=== PATIENT | male | born 1945 | race Caucasian/White ===

== ENCOUNTER 2016-10-18 19:37 | Emergency (ER) ==
[2016-10-18 19:40] VITALS: BP 147/84; TEMP 97.8; BMI 29.8
[2016-10-18] MEDS ORDERED: NITROSTAT SL STA (20:02)
[2016-10-18] MEDS ORDERED: ASPIRIN CHEWABLE PO STA (20:02)
[2016-10-18] MEDS ORDERED: SODIUM CHLORIDE 1,000 ML IV STA (20:04)
--- NOTE | 2016-10-18 20:04 | ED.PDOC ---
General ED Provider: Dr. TOMMIE PARISI Chief Complaint: Chest Pain Stated Complaint: Patient is a 71 year old male who has a history of DM on medicaions, has never smoked comes to the ER with a 2 week history of intermittent chest Located on the mid chest goes across Associated with dyspnea and mild shortness of breath. Pain is excertional sometimes last up to an hour. Time Seen by Physician: 19:55 Mode of Arrival: Walk-In Information Source: Patient Exam Limitations: No limitations Primary Care Provider: NATANAEL ARENAS Nursing and Triage Documentation Reviewed and Agree: Yes Cardiovascular Complaint Exam - Chest Pain Complaint/Exam Onset: Gradual Duration: 2 weeks Symptoms Are: Still present Timing: Intermittent Length of Chest Pain Episodes: few min to 1 hour Initial Severity: Moderate Current Severity: Moderate Location: Reports: Midsternal Pain Radiates: Reports: None Character: Reports: Dull, Heaviness Aggravating: Reports: Exertion Alleviating: Reports: Rest Associated Signs and Symptoms: Reports: Short of air. Denies: Diaphoresis, Nausea, Vomiting, Fever, Palpitations, Cough, Hemoptysis, Back pain, Abdominal pain, Dizziness, Calf pain, Calf swelling Related Surgical History: Reports: None History of Healthcare-Acquired Pneumonia: Reports: No AMI/ACS Risk Factors: Reports: Diabetes, Family history, Hypertension. Denies: Myocardial Infarction, Sedentary, Obesity, Nitroglycerine use, Smoking, Cocaine use TAD Risk Factors: Reports: None Pulmonary Embolism Risk Factors: Reports: None Prior Care for this Complaint: No Recent Stress Test: No Recent Echo/LV Function: No JVD Present: No Subcutaneous Emphysema Present: No Diminshed Breath Sounds: No Reproducible Chest Wall Pain: No Bilateral Pulses Present: No Unequal Pulses Noted: No Chest Picture: 1 - area of dull pain If Risk Factors for AMI/ACS Consider: EKG, Cardiac Enzymes, Serial Studies, Oxygen, Aspirin Documents Reviewed: Labs, Imaging, EKG Differential Diagnoses: Acute NV, ACS, Unstable Angina, CHF, GI Diseasae Quality Indicators For Acute NV or Cardiac Chest Pain: EKG in 10min., ASA if indicated Patient Advised to Stop Smoking: No (does not smoke. ) Review of Systems - Review Of Systems Constitutional: Reports: No symptoms Eyes: Reports: No symptoms Ears, Nose, Mouth, Throat: Reports: No symptoms Respiratory: Reports: Short of air Cardiac: Reports: Chest pain GI: Reports: No symptoms : Reports: No symptoms Musculoskeletal: Reports: No symptoms Skin: Reports: No symptoms Neurological: Reports: Anxiety Endocrine: Reports: No symptoms Hematologic/Lymphatic: Reports: No symptoms All Other Systems: Reviewed and Negative Past Medical History - Past Medical History Previously Healthy: No Endocrine: Reports: DM 2 Cardiovascular: Reports: Hypertension Respiratory: Reports: None Hematological: Reports: None Gastrointestinal: Reports: None Genitourinary: Reports: None Neuro/Psych: Reports: None Musculoskeletal: Reports: None Cancer: Reports: None - Surgical History General Surgical History: Reports: Orthopedic (left femur pain) - Family History Family History: Reports: Heart, Cancer - Social History Smoking Status: Never smoker Hx Substance Use: No Alcohol Screening: None Physical Exam - Physical Exam Appearance: Ill-appearing Ill-appearing: Mild Pain Distress: Mild Eyes: JHOAN, EOMI, Conjunctiva clear Neck: Supple Respiratory: Airway patent, Breath sounds clear, Breath sounds equal, Respirations nonlabored Cardiovascular: RRR, Pulses normal, No rub, No murmur GI/: Soft, Nontender, No masses, Bowel sounds normal, No Organomegaly Musculoskeletal: Normal strength, ROM intact, No edema, No calf tenderness Skin: Warm Neurological: Sensation intact, Motor intact, Alert, Oriented Psychiatric: Anxious Interpretation - Radiology Interpretation Radiology Interpretation By: ED Physician Radiology Results: No acute changes 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 Re-Evaluation - Re-Evaluation Time of Re-Evaluation: 20:26 Status: Improved Pain Level: 2 down from 5 after Nitroglycerin. Appearance: NAD Lungs: Clear Skin: Warm and Dry Neuro: Alert and Oriented X3 CV: RRR - Re-Evaluation Time of Re-Evaluation: 21:35 Status: Improved Vital Signs Stable: Yes Pain Level: 3 from 1 Appearance: NAD Skin: Warm and Dry Neuro: Alert and Oriented X3 CV: RRR Physician Notification - Case Discussed Physician Notified: Dr. Bocanegra Time of Notification: 21:05 (accepted in transer. ) Critical Care Note - Critical Care Note Total Time (mins): 15 Course - Course Hematology/Chemistry: 10/18/16 20:08 10/18/16 20:08 Orders, Labs, Meds: Lab Review 10/18/16 20:08 WBC 7.80 RBC 4.49 L Hgb 13.1 L Hct 37.5 L MCV 83.5 MCH 29.2 MCHC 34.9 RDW Coeff of Latoya 12.4 Plt Count 277 Immature Gran % (Auto) 0.1 Neut % (Auto) 51.1 Lymph % (Auto) 39.2 [place] % (Auto) 6.3 Eos % (Auto) 2.7 Baso % (Auto) 0.6 Immature Gran # (Auto) 0.0 Neut # 4.0 Lymph # 3.1 [place] # 0.5 Eos # 0.2 Baso # 0.1 Sodium 139 Potassium 3.8 Chloride 106 Carbon Dioxide 25 Anion Gap 11.8 BUN 12 Creatinine 1.00 Estimated GFR (MDRD) 74.00 BUN/Creatinine Ratio 12.00 Glucose 111 Calcium 9.3 Total Bilirubin 0.51 AST 16 ALT 16 Alkaline Phosphatase 97 Total Creatine Kinase 99 Troponin I 0.0210 B-Natriuretic Peptide 16 Total Protein 7.0 Albumin 4.0 Globulin 3.0 Albumin/Globulin Ratio 1.33 Orders Category Date Time Status EKG-(ED ONLY) Stat CARDIO 10/18/16 19:57 Completed EKG-(ED ONLY) Stat CARDIO 10/18/16 21:21 Ordered ED APPLY O2 .ONCE EMERGENCY 10/18/16 19:57 Active 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 .ONCE EMERGENCY 10/18/16 19:57 Active ED IV/MEDIPORT/POWERPORT .ONCE EMERGENCY 10/18/16 19:57 Active B-TYPE NATRIURETIC PEPTIDE Stat LAB 10/18/16 20:08 Completed CBC W/ AUTO DIFF Stat LAB 10/18/16 20:08 Completed COMPREHENSIVE METABOLIC PANEL Stat LAB 10/18/16 20:08 Completed CREATINE KINASE Stat LAB 10/18/16 20:08 Completed TROPONIN I Stat LAB 10/18/16 20:08 Completed 0.9 % Sodium Chloride [Saline Flush] MEDS 10/18/16 19:57 Ordered 1 syr IVF PRN PRN Aspirin [Aspirin Chewable] MEDS 10/18/16 20:02 Discontinued 324 mg PO ONCE STA Enoxaparin Sodium [Lovenox] MEDS 10/18/16 21:05 Discontinued 100 mg SUBCUT ONCE STA Nitroglycerin [Nitro-Dur 0.4 mg/Hr] MEDS 10/18/16 21:30 Ordered 1 patch TD DAILY Nitroglycerin [Nitrostat] MEDS 10/18/16 20:02 Discontinued 0.4 mg SL ONCE STA Sodium Chloride 0.9% [Sodium Chloride] 1,000 ml MEDS 10/18/16 20:04 Active IV 100 mls/hr CHEST, 1V AP ONLY Stat RADS 10/18/16 19:57 Taken Medications Generic Name Dose Route Start Last Admin Trade Name Freq PRN Reason Stop Dose Admin Sodium Chloride 1,000 mls @ 100 mls/hr 10/18/16 20:04 10/18/16 20:19 Sodium Chloride IV 10/19/16 06:03 100 mls/hr .Q10H STA Administration Nitroglycerin 1 patch 10/18/16 21:30 10/18/16 21:30 Nitro-Dur 0.4 Mg/Hr TD 1 patch DAILY NOÉ Administration Sodium Chloride 1 syr 10/18/16 19:57 10/18/16 20:19 Saline Flush IVF 1 syr PRN PRN Administration To flush IV Discontinued Medications Generic Name Dose Route Start Last Admin Trade Name Freq PRN Reason Stop Dose Admin Aspirin 324 mg 10/18/16 20:02 10/18/16 20:14 Aspirin Chewable PO 10/18/16 20:03 324 mg ONCE STA Administration Enoxaparin Sodium 100 mg 10/18/16 21:05 10/18/16 21:30 Lovenox SUBCUT 10/18/16 21:06 100 mg ONCE STA Administration Nitroglycerin 0.4 mg 10/18/16 20:02 10/18/16 20:19 Nitrostat SL 10/18/16 20:03 0.4 mg ONCE STA Administration Vital Signs: Temp Pulse Resp BP Pulse Ox 10/18/16 19:37 97.8 F 80 18 147/84 H 97 ELEANOR Risk Score Age >/= 65: Yes >/= 3 CAD Risk Factors: Yes Known CAD (Stenosis >/= 50%): No ASA Use in Past 7 Days: No Severe Angina (>/= 2 episodes in 24 hours): Yes EKG ST Changes >/= 0.5mm: No Postive Cardiac Marker: No ELEANOR Total Score: 3 ELEANOR Risk Score: Risk Score Odds of by 30D 0 0.1 (0.1-0.2) 1 0.3 (0.2-0.3) 2 0.4 (0.3-0.5) 3 0.7 (0.6-0.9) 4 1.2 (1.0-1.5) 5 2.2 (1.9-2.6) 6 3.0 (2.5-3.6) 7 4.8 (3.8-6.1) Departure - Departure Time of Disposition: 21:35 Disposition: TSF SHORT-TRM HOSP Discharge Problem: Chest pain, Angina of effort Condition: Fair Pt referred to PMD for follow-up: No (transferred ) Allergies/Adverse Reactions: Allergies No Known Allergies Allergy (Verified 10/18/16 19:40) Home Medications: Ambulatory Orders Glimepiride [Amaryl] 4 mg PO BID 11/10/14 Metformin HCl [Glucophage] 1,000 mg PO BID 11/10/14 Pt. Stabilized Within Hospital's Capabilities/Transferred To: [facility] Room 460 Disposition Discussed With: Patient
[2016-10-18 20:12] LABS: BASOPHILS # (AUTO) 0.1 K/uL (0-0.2); BASOPHILS % (AUTO) 0.6 % (0.0-3.0); EOSINOPHILS # (AUTO) 0.2 K/ul (0.0-0.7); EOSINOPHILS % (AUTO) 2.7 % (0.0-7.0); HEMATOCRIT 37.5 % (42.0-52.0); HEMOGLOBIN 13.1 g/dl (14.0-18.0); IMMATURE GRANULOCYTE % (AUTO) 0.1 % (0.0-5.0); LYMPHOCYTES # (AUTO) 3.1 K/uL (0.60-3.4); LYMPHOCYTES % (AUTO) 39.2 (10.0-50.0); MEAN CORPUSCULAR HEMOGLOBIN 29.2 pg (27.0-31.0); MEAN CORPUSCULAR HGB CONC 34.9 (31.8-35.4); MEAN CORPUSCULAR VOLUME 83.5 fl (80.0-94.0); MONOCYTES # (AUTO) 0.5 K/uL (0.4-2.0); MONOCYTES % (AUTO) 6.3 (0-10); NEUTROPHILS % (AUTO) 51.1; PLATELET COUNT 277 10^3/uL (140-440); RED BLOOD COUNT 4.49 10^6/ul (4.70-6.10)
[2016-10-18 20:41] LABS: ALBUMIN/GLOBULIN RATIO 1.33; ANION GAP 11.8; BILIRUBIN,TOTAL 0.51 mg/dL (0.00-1.20); CALCIUM 9.3 mg/dL (8.2-10.2); POTASSIUM 3.8 mmol/L (3.5-5.1); TROPONIN I 0.021 ng/ml (0.0000-0.4000)
[2016-10-18] MEDS ORDERED: LOVENOX SUBCUT STA (21:05)
[2016-10-18] MEDS ORDERED: NITRO-DUR 0.4 MG/HR TD ONE (21:27)
[2016-10-18] MEDS ORDERED: NITRO-DUR 0.4 MG/HR TD SCH (21:30)
[2016-10-18] MEDS ORDERED: MORPHINE 2 MG/ML SYRINGE IVP STA (21:36)
[2016-10-18] MEDS ORDERED: ZOFRAN 4 MG/2 ML IVP STA (21:36)
--- NOTE | 2016-10-19 07:42 | DI ---
EXAM: Single view of the chest. History: Chest pain. Findings: Heart size is normal. Elevated left hemidiaphragm. No focal consolidation. No apprecia ble pleural fluid and no pneumothorax. No acute osseous abnormalities. Impression: No acute cardiopulmonary process.
== END 2016-10-18 21:50 | disposition short-term general hospital (02) ==
LOC: ED 19:37
DX: I20.8 Other forms of angina pectoris (principal); I10 Essential (primary) hypertension; E11.9 Type 2 diabetes mellitus without complications; Z79.899 Other long term (current) drug therapy
CPT/HCPCS: 36415; 80053; 82550; 83880; 84484; 85025; 93005; 93010; 96360; 96361; 96372; 96374; 96375; 99285

== ENCOUNTER 2018-07-13 02:03 | Emergency (ER) ==
[2018-07-13 02:10] VITALS: BP 179/77; TEMP 97.7; BMI 29.4
--- NOTE | 2018-07-13 03:34 | CT ---
EXAM: CT scan abdomen pelvis without contrast HISTORY: Constipation diarrhea COMPARISON: CT scan chest abdomen pelvis 11/10/2014 FINDINGS: Contiguous axial images obtained through the abdomen pelvis without contrast utilizing 3-m m collimation. Sagittal and coronal reconstructions were imaged and reviewed.. There is stable elev ation of the left hemidiaphragm with scarring at the left lung base with granulomatous calcification left infrahilar region There has been prior cholecystectomy.. Benign granulomatous changes are seen within the spleen. The liver pancreas and adrenal glands have normal unenhanced CT appearance. Ath erosclerotic changes are seen involving the aorta without aneurysm formation. The right kidney is mor phologically normal.. There is a stable large exophytic cyst lower pole left kidney.. The prostate gland is normal in size and contains calcification. The rectum is mildly distended with stool and de monstrates mild surrounding inflammation. There is no free fluid. There is normal-appearing bladder . There are bilateral fat containing inguinal hernias. There is a normal appendix.. There is diver ticulosis without diverticulitis.. Degenerative changes are seen within the visualized thoracolumbar spine. IMPRESSION: Prior cholecystectomy. Diverticulosis without diverticulitis. Stable exophytic left renal cyst. Moderately stool filled distended rectum with mild surrounding inflammation
--- NOTE | 2018-07-13 04:22 | ED.PDOC ---
General ED Provider: Dr. SRI NEWSOME-ER Chief Complaint: Constipation Stated Complaint: im constipated Time Seen by Physician: 02:15 Mode of Arrival: Walk-In Information Source: Patient Exam Limitations: No limitations Nursing and Triage Documentation Reviewed and Agree: Yes Does patient meet sepsis criteria?: No System Inflammatory Response Syndrome: Not Applicable Sepsis Protocol: For patient's 13 years and over: Temp is 96.8 and below OR 101 and greater Pulse >90 BPM Resp >20/minute Acutely Altered Mental Status Are patient's symptoms suggestive of a new infection, such as: -Pneumonia -Skin, Soft Tissue -Endocarditis -UTI -Bone, Joint Infection -Implantable Device -Acute Abdominal Infection -Wound Infection -Meningitis -Blood Stream Catheter Infection -Unknown GI Complaint Exam - Abdominal Pain Complaint/Exam Onset: Gradual Duration: 24 hrs Symptoms Are: Still present Timing: Constant Initial Severity: Mild Current Severity: Mild Location of Pain: Diffuse Character: Reports: Dull, Aching Aggravating: Reports: None Alleviating: Reports: Spontaneous resolution Associated Signs and Symptoms: Denies: Diaphoresis, Fever, Cough, Chest pain, Dizziness, Back pain, Constipation, Blood in stool, Dysuria, Urinary frequency, Decreased urine output, Decreased appetite, Discharge, Nausea, Vomiting, Diarrhea, Decreased activity Differential Diagnoses: Bowel Obstruction, Constipation Review of Systems - Review Of Systems Constitutional: Reports: No symptoms Eyes: Reports: No symptoms Ears, Nose, Mouth, Throat: Reports: No symptoms Respiratory: Reports: No symptoms Cardiac: Reports: No symptoms GI: Reports: Abdominal pain : Reports: No symptoms Musculoskeletal: Reports: No symptoms Skin: Reports: No symptoms Neurological: Reports: No symptoms Endocrine: Reports: No symptoms Hematologic/Lymphatic: Reports: No symptoms All Other Systems: Reviewed and Negative Past Medical History - Past Medical History Previously Healthy: No Endocrine: Reports: DM 2 Cardiovascular: Reports: Hypertension Respiratory: Reports: None Hematological: Reports: None Gastrointestinal: Reports: None Genitourinary: Reports: None Neuro/Psych: Reports: None Musculoskeletal: Reports: None Cancer: Reports: None - Surgical History General Surgical History: Reports: Orthopedic (left femur pain) - Family History Family History: Reports: Heart, Cancer - Social History Smoking Status: Never smoker Hx Substance Use: No Alcohol Screening: Occasionally - Immunizations Tetanus Shot up to Date: No Physical Exam - Physical Exam Appearance: Well-appearing, No pain distress, Well-nourished Eyes: JHOAN, EOMI, Conjunctiva clear ENT: Ears normal, Nose normal, Oropharynx normal Neck: Supple Respiratory: Airway patent, Breath sounds clear, Breath sounds equal, Respirations nonlabored Cardiovascular: RRR, Pulses normal, No rub, No murmur GI/: Soft, Nontender, No masses, Bowel sounds normal, No Organomegaly Musculoskeletal: Normal strength, ROM intact, No edema, No calf tenderness Skin: Warm, Dry, Normal color Neurological: Sensation intact, Motor intact, Reflexes intact, Cranial nerves intact, Alert, Oriented Psychiatric: Affect appropriate, Mood appropriate Interpretation - Radiology Interpretation Radiology Interpretation By: Radiologist Radiology Results: Positive Exam Interpreted: CT Scan Critical Care Note - Critical Care Note Total Time (mins): 0 Course - Course Hematology/Chemistry: 07/13/18 02:45 07/13/18 02:45 Orders, Labs, Meds: Lab Review 07/13/18 07/13/18 07/13/18 02:44 02:45 02:45 WBC 6.31 RBC 4.76 Hgb 14.1 Hct 40.0 L MCV 84.0 MCH 29.6 MCHC 35.3 RDW Coeff of Latoya 12.9 Plt Count 252 Immature Gran % (Auto) 0.3 Neut % (Auto) 55.9 Lymph % (Auto) 32.0 [place] % (Auto) 8.1 Eos % (Auto) 3.2 Baso % (Auto) 0.5 Immature Gran # (Auto) 0.0 Neut # (Auto) 3.5 Lymph # (Auto) 2.0 [place] # (Auto) 0.5 Eos # (Auto) 0.2 Baso # (Auto) 0.0 Sodium 139.2 Potassium 4.41 Chloride 103.5 Carbon Dioxide 28.1 Anion Gap 12.01 BUN 13.4 Creatinine 1.12 H Estimated GFR (MDRD) 65.00 BUN/Creatinine Ratio 11.96 Glucose 271.0 H Calcium 9.68 Total Bilirubin 0.32 AST 42.0 ALT 22.2 Alkaline Phosphatase 109.1 Total Protein 7.97 Albumin 4.73 Globulin 3.24 Albumin/Globulin Ratio 1.45 Amylase 81.1 Lipase 73.7 TSH 3.970 Urine Color Urine Clarity Urine pH Ur Specific [place] Urine Protein Urine Glucose (UA) Urine Ketones Urine Blood Urine Nitrite Urine Bilirubin Urine Urobilinogen Ur Leukocyte Esterase 07/13/18 02:45 WBC RBC Hgb Hct MCV MCH MCHC RDW Coeff of Latoya Plt Count Immature Gran % (Auto) Neut % (Auto) Lymph % (Auto) [place] % (Auto) Eos % (Auto) Baso % (Auto) Immature Gran # (Auto) Neut # (Auto) Lymph # (Auto) [place] # (Auto) Eos # (Auto) Baso # (Auto) Sodium Potassium Chloride Carbon Dioxide Anion Gap BUN Creatinine Estimated GFR (MDRD) BUN/Creatinine Ratio Glucose Calcium Total Bilirubin AST ALT Alkaline Phosphatase Total Protein Albumin Globulin Albumin/Globulin Ratio Amylase Lipase TSH Urine Color Yellow Urine Clarity Clear Urine pH 6.0 Ur Specific [place] 1.010 Urine Protein Negative Urine Glucose (UA) 2+ Urine Ketones Negative Urine Blood Negative Urine Nitrite Negative Urine Bilirubin Negative Urine Urobilinogen 0.2 Ur Leukocyte Esterase Negative Orders Category Date Time Status Bladder Scan [ED BLADDER SCAN] .ONCE EMERGENCY 07/13/18 04:43 Active AMYLASE Stat LAB 07/13/18 02:45 Completed CBC W/ AUTO DIFF Stat LAB 07/13/18 02:45 Completed COMPREHENSIVE METABOLIC PANEL Stat LAB 07/13/18 02:45 Completed LIPASE Stat LAB 07/13/18 02:45 Completed TSH [THYROID STIMULATING HORMONE] Stat LAB 07/13/18 02:44 Completed UA [URINALYSIS C & S IF INDICATED] Stat LAB 07/13/18 02:[address] ABDOMEN/PELVIS WO CONTRAST Stat RADS 07/13/18 02:32 Completed Vital Signs: Temp Pulse Resp BP Pulse Ox 07/13/18 02:06 97.7 F 94 H 20 179/77 H 95 Departure - Departure Time of Disposition: 04:21 Disposition: HOME SELF-CARE Discharge Problem: Constipation Instructions: Constipation (ED), High Fiber Diet (ED) Condition: Good Pt referred to PMD for follow-up: Yes IPMP verified?: No Additional Instructions: mag citrate one bottle plus dulcolax supp x2 --f/u wtih pcp about getting colon is up to date Allergies/Adverse Reactions: Allergies No Known Allergies Allergy (Verified 07/13/18 02:11) Home Medications: Ambulatory Orders Glimepiride [Amaryl] 4 mg PO BID 11/10/14 Metformin HCl [Glucophage] 1,000 mg PO BID 11/10/14 Disposition Discussed With: Patient
== END 2018-07-13 05:00 | disposition home or self-care (01) ==
LOC: ED 02:03
DX: K59.00 Constipation, unspecified (principal)
CPT/HCPCS: 36415; 51798; 80053; 81001; 82150; 83690; 84443; 85025; 99283